=== PATIENT | female | born 1930 | race Two or more races ===

== ENCOUNTER → 2017-11-27 | Emergency (ER) | payer OTHER ==
[~2017-11-27] VITALS: Ht 152.4 cm; Wt 59.9 kg
[~2017-11-27] MED LIST: ARICEPT5 MG; CENTRUM WOMEN1 EACH; LOSARTAN-HCTZ1 EACH; NEURONTIN300 MG; PROPRANOLOL HCL20 MG
== END | disposition home or self-care (01) ==
LOC: ER 15:27
DX: M79.1 Myalgia (principal); R50.9 Fever, unspecified

== ENCOUNTER 2018-01-22 10:43 | Emergency (ER) | payer OTHER ==
[~2018-01-22] VITALS: Ht 152.4 cm; Wt 59.0 kg
[2018-01-22] MEDS ORDERED: NEURONTIN300 MG (10:58)
== END 2018-01-22 18:16 | disposition home or self-care (01) ==
LOC: ER 10:43
DX: S30.0XXA Contusion of lower back and pelvis, initial encounter (principal); M53.3 Sacrococcygeal disorders, not elsewhere classified; W18.09XA Striking against other object with subsequent fall, initial encounter; Y93.89 Activity, other specified; Y92.018 Other place in single-family (private) house as the place of occurrence of the external cause; Y99.8 Other external cause status

== ENCOUNTER 2018-02-02 10:34 | Emergency (ER) | payer OTHER ==
[~2018-02-02] VITALS: Ht 152.4 cm; Wt 61.2 kg
[2018-02-02] MEDS ORDERED: NAMENDA5 MG (10:58)
[2018-02-02] MEDS ORDERED: HYZAAR 50-12.51 EACH (10:59)
== END 2018-02-02 14:16 | disposition home or self-care (01) ==
LOC: ER 10:34
DX: R53.1 Weakness (principal); R40.0 Somnolence; R47.1 Dysarthria and anarthria

== ENCOUNTER 2018-12-10 23:17 | Emergency (ER) | payer OTHER ==
[~2018-12-10] VITALS: Ht 152.4 cm; Wt 68.0 kg
[~2018-12-10 23:17] MED LIST changes: +HYZAAR 50-12.51 EACH; +NAMENDA5 MG
[2018-12-10] MEDS ORDERED: TYLENOL ARTHRI650 MG (23:38)
[2018-12-10] MEDS ORDERED: CARBIDOPA-LEVO1 EAC9 (23:38)
[2018-12-10] MEDS ORDERED: SYSTANE ULTRA 010 ML (23:38)
[2018-12-10] MEDS ORDERED: EPIDIOLEX100 MG/1 M (23:39)
[2018-12-11] MEDS ORDERED: HYZAAR 50-12.51 EACH (14:11)
== END 2018-12-11 15:53 | disposition home or self-care (01) ==
LOC: ER 23:17
DX: E86.0 Dehydration (principal); R11.2 Nausea with vomiting, unspecified; I95.89 Other hypotension; R74.8 Abnormal levels of other serum enzymes; G20 Parkinson's disease; G30.8 Other Alzheimer's disease; F02.80 Dementia in other diseases classified elsewhere, unspecified severity, without behavioral disturbance, psychotic disturbance, mood disturbance, and anxiety